=== PATIENT | male | born 1970 | race Caucasian/White ===

== ENCOUNTER 2017-02-16 15:20 | Emergency (ER) | payer OTHER ==
[~2017-02-16 15:20] MED LIST: ACIPHEX20 MG; ALLOPURINOL300 MG; CIPRO500 MG PO; COLCHICINE0.6 MG PO; COREG; COREG3.125 MG; INDOCIN50 MG; INDOCIN50 MG/CAP PO; INDOMETHACIN50 MG PO; MEDROL4 MG/DOSE- PO; NORCO 5/325 TAB1 TAB PO; PREVACID30 MG; REGLAN10 MG PO; ZYLOPRIM300 MG PO
[2017-02-16] MEDS ORDERED: MOBIC7.5 M2 PO (16:33)
== END 2017-02-16 16:44 ==
LOC: EDMED 15:20
DX: M77.9 Enthesopathy, unspecified (principal); I50.9 Heart failure, unspecified; F17.210 Nicotine dependence, cigarettes, uncomplicated; Z85.118 Personal history of other malignant neoplasm of bronchus and lung; Z90.49 Acquired absence of other specified parts of digestive tract